=== PATIENT | male | born 1945 | race Caucasian/White ===

== ENCOUNTER 2017-07-29 10:11 | Inpatient (IN) | payer OTHER, MEDICARE ==
[2017-07-16 11:05] VITALS: Ht 167.6 cm; Wt 82.0 kg
--- NOTE | 2017-07-16 11:52 | PAT Medication Instructions ---
Service Date Jul 16, 2017. Current Home Medication List Acyclovir (Zovirax), 400 MG PO UD PRN for COLD SORES/GEN HERPES Adalimumab (Humira Pen), Unknown Dose Aspirin (Aspirin 81), 1 TAB PO HS Atorvastatin (Lipitor), 40 MG PO HS Cholecalciferol (Vitamin D3), Unknown Dose PO QAM Citalopram (Citalopram Hydrobromide), 1 TAB PO QAM Folic Acid (Folvite), 1 MG PO 6XWK Meloxicam (Meloxicam), 1 TAB PO QAM Methotrexate (Methotrexate), 2.5 TAB PO WK Omeprazole (Prilosec), 20 MG PO BID Prednisone (Prednisone), 5 MG PO QAM Ropinirole (Requip), 0.5 MG PO QAM Ropinirole (Requip), 1 MG PO HS [Testosterone ], 1 DOSE INJ EVERY OTHER WEEK Medication Instructions For Your Scheduled Surgery -Continue as directed: [Testosterone ], 1 DOSE INJ EVERY OTHER WEEK -Contact your surgeon for instructions for: Meloxicam (Meloxicam), 1 TAB PO QAM -Ask your environmental protection economist for instructions for: Methotrexate (Methotrexate), 2.5 TAB PO WK - Hold the following medications 2 weeks prior to surgery per your surgeon's instructions: Adalimumab (Humira Pen), Unknown Dose - Hold the following medications the night before surgery: Ropinirole (Requip), 1 MG PO HS - Hold the following medications the morning of surgery: Ropinirole (Requip), 0.5 MG PO QAM Cholecalciferol (Vitamin D3), Unknown Dose PO QAM Folic Acid (Folvite), 1 MG PO 6XWK - Take the following medications the morning of surgery with a sip of water: Citalopram (Citalopram Hydrobromide), 1 TAB PO QAM Prednisone (Prednisone), 5 MG PO QAM Omeprazole (Prilosec), 20 MG PO BID Acyclovir (Zovirax), 400 MG PO UD PRN for COLD SORES/GEN HERPES (if needed) - Take the following medications as scheduled the night before surgery: Aspirin (Aspirin 81), 1 TAB PO HS Atorvastatin (Lipitor), 40 MG PO HS Omeprazole (Prilosec), 20 MG PO BID Acyclovir (Zovirax), 400 MG PO UD PRN for COLD SORES/GEN HERPES (if needed) If you have any questions please call us at [phone] or [phone] or [phone]
--- NOTE | 2017-07-16 12:47 | DIAGNOSTIC IMAGING REPORT ---
CHEST 2 VIEWS ROUTINE CLINICAL HISTORY: Preoperative chest COMPARISON STUDY: No previous studies for comparison. FINDINGS: The heart is at the upper limits of normal in size. There is azygos fissure. There is no failure. There is no focal pulmonary consolidation. On the PA film, there is an 11 mm right infrahilar opacity. This likely represents a vascular summation as no corresponding mass is visualized in the lateral view. It would seem prudent to obtain a follow-up chest x-ray and 6 weeks.[ IMPRESSION: 1. 11 mm right infrahilar opacity, likely representing a summation. A 6 week follow-up chest x-rays recommended 2. No evidence of failure. No evidence of acute parenchymal consolidation. Electronically signed by: Phoenix Lira M.D. 07/16/2017 12:46 PM Dictated Date/Time: 07/16/2017 12:44 PM
--- NOTE | 2017-07-16 12:56 | DIAGNOSTIC IMAGING REPORT ---
LATERAL VIEW OF THE CERVICAL SPINE WITH FLEXION AND EXTENSION (3 VIEWS) CLINICAL HISTORY: Preop study. Rheumatoid arthritis. COMPARISON STUDY: No previous studies for comparison. FINDINGS: There are degenerative changes present at the C6-7 level. The prevertebral soft tissues are normal. No fractures are visualized. There is no instability on flexion or extension. IMPRESSION: 1. No instability on flexion or extension 2. Degenerative changes at the C6-7 level. Electronically signed by: Phoenix Lira M.D. 07/16/2017 12:55 PM Dictated Date/Time: 07/16/2017 12:54 PM
[2017-07-16 13:27] LABS: BASO % 0.1 %; BASO ABS # 0.01 K/uL (0-0.2); EOS % 1.3 %; HEMATOCRIT 43.2 % (42-52); HEMOGLOBIN 14.6 g/dL (14.0-18.0); IG# 0.01 K/uL (0.00-0.02); LYMPH % 19.7 %; LYMPH ABS # 1.53 K/uL (1.2-3.4); MEAN CORPUSCULAR HEMOGLOBIN 33.8 pg (25-34); MEAN CORPUSCULAR HGB CONC 33.8 g/dl (32-36); MEAN PLATELET VOLUME 9.8 fL (7.4-10.4); MONO % 9.3 %; MONO ABS # 0.72 K/uL (0.11-0.59); NEUT % 69.5 %; NEUT ABS # 5.41 K/uL (1.4-6.5); PLATELET COUNT 211 K/uL (130-400); RED CELL DISTRIBUTION WIDTH CV 12.8 % (11.5-14.5); RED CELL DISTRIBUTION WIDTH SD 46.4 fL (36.4-46.3); WHITE BLOOD COUNT 7.78 K/uL (4.8-10.8)
[2017-07-16 13:41] LABS: CALCIUM 8.8 mg/dl (8.5-10.1); CREATININE 1.05 mg/dl (0.60-1.40); POTASSIUM 4.5 mmol/L (3.5-5.1)
[2017-07-29] VITALS (8 sets, daily range): BP systolic 110–134; BP diastolic 70–89; PULSE 68–84; TEMP 36.6–36.9; O2SAT 91–97
[~2017-07-29] VITALS: Ht 167.6 cm; Wt 82.0 kg
[~2017-07-29 10:11] MED LIST: ACYC-57 PO; ADAL40KI; ASPI-435 PO; ATOR-24 PO; ATROPINE SULFATE 0.1 MG/ML 5ML SYR IV PRN; CEFAZOLIN 2000MG IV PUSH 10 ML IV SCH; CHOL1000 PO; CITA40TA4 PO; EpHEDrine SULFATE INJ 50 MG/ML AMP IV PRN; FENTANYL CITRATE INJ 50 MCG/1 ML 2 ML VIAL IV PRN; FOLI1TAB8 PO; HYDROmorphone INJ 1 MG/ML SYR IV PRN; LACTATED RINGER'S 1000ML 1,000 ML IV SCH; MELO15TA4 PO; METH2.5T PO; ONDANSETRON INJ 2 MG/ML 2 ML VIAL IV PRN; PRED-301 PO; PRLSR20 PO; ROPI0.5T15 PO; ROPI1TAB PO; TESTOSTERONE INJ
[2017-07-29] MEDS ORDERED: MIDAZOLAM HCL 1 MG/ML 2ML VIAL ONE (11:11)
[2017-07-29] MEDS ORDERED: FENTANYL CITRATE INJ 50 MCG/1 ML 2 ML VIAL ONE ×4 (11:11→13:52)
[2017-07-29] MEDS ORDERED: BACITRACIN 50000 UNIT VIAL ONE (11:13)
[2017-07-29] MEDS ORDERED: BUPIVACAINE/EPINEPHRINE 0.5% MPF 1:200,000 30 ML VIAL ONE (11:13)
--- NOTE | 2017-07-29 11:14 | History & Physical Bridge Note ---
H&P Re-Evaluation Bridge Note: I have examined the patient, reviewed the History & Physical and in the interval since the performance of the History & Physical I have noted the following changes of clinical significance: No changes noted
--- NOTE | 2017-07-29 11:15 | History and Physical ---
History & Physical Date Jul 29, 2017. Chief Complaint Back and leg pain History of Present Illness The patient is a 72 year old male with complaints of back and leg pain Additional History Hepatic Disease: No Endocrine Disorder: No Kidney Disease: No Hypertension: No Heart Disease: No Bleeding Tendencies: No Infectious Diseases: No Allergies Coded Allergies: No Known Allergies (Unverified , 07/29/17) Home Medications Scheduled Aspirin (Aspirin 81), 1 TAB PO HS Atorvastatin (Lipitor), 40 MG PO HS Cholecalciferol (Vitamin D3), Unknown Dose PO QAM Citalopram (Citalopram Hydrobromide), 1 TAB PO QAM Folic Acid (Folvite), 1 MG PO 6XWK Meloxicam (Meloxicam), 1 TAB PO QAM Methotrexate (Methotrexate), 2.5 TAB PO WK Omeprazole (Prilosec), 20 MG PO BID Prednisone (Prednisone), 5 MG PO QAM Ropinirole (Requip), 0.5 MG PO QAM Ropinirole (Requip), 1 MG PO HS [Testosterone ], 1 DOSE INJ EVERY OTHER WEEK Scheduled PRN Acyclovir (Zovirax), 400 MG PO UD PRN for COLD SORES/GEN HERPES Miscellaneous Medications Adalimumab (Humira Pen), Unknown Dose Physical Examination Skin: warm/dry, no rash Eyes: normal inspection, EOMI, sclerae normal ENT: normal ENT inspection, pharynx normal Head: normocephalic, atraumatic Neck: supple, no adenopathy, trachea midline Respiratory/Chest: lungs clear, normal breath sounds, no respiratory distress Cardiovascular: regular rate, rhythm, no edema, no murmur Abdomen / GI: normal bowel sounds, non tender Back: normal inspection Extremities: normal inspection, normal range of motion Neurologic/Psych: no motor/sensory deficits, alert, normal reflexes, oriented x 3 Diagnosis Lumbar spinal stenosis Plan of Treatment Impression and fusion L4 5
[2017-07-29] MEDS ORDERED: HYDROmorphone INJ 2 MG/ML SYR/VIAL ONE ×2 (12:18→13:28)
[2017-07-29] MEDS ORDERED: PROPOFOL IV EMULSION 10 MG/ML 20 ML VIAL IV ONE (12:38)
[2017-07-29] MEDS ORDERED: ONDANSETRON INJ 2 MG/ML 2 ML VIAL ONE ×2 (12:38→13:29)
[2017-07-29] MEDS ORDERED: DEXAMETHASONE SOD INJ 4 MG/ML VIAL ONE (12:38)
[2017-07-29] MEDS ORDERED: LIDOCAINE HCL 2% 2 ML VIAL (20MG/ML) ONE (12:38)
[2017-07-29] MEDS ORDERED: FLOSEAL HEMOSTATIC MATRIX 10ML TOP ONE (13:22)
[2017-07-29] MEDS ORDERED: KETOROLAC TROMETHAMINE 30 MG/ML VIAL ONE (13:29)
[2017-07-29] MEDS ORDERED: PHENYLEPHRINE 100MCG/ML 5ML SYR ONE (13:29)
[2017-07-29] MEDS ORDERED: NEOSTIGMINE METHYLSULFATE 1 MG/ML 10ML VIAL ONE (13:29)
[2017-07-29] MEDS ORDERED: PHENYLEPHRINE HCL INJ 10 MG/ML VIAL ONE (13:29)
[2017-07-29] MEDS ORDERED: GLYCOPYRROLATE INJ 0.2 MG/ML VIAL ONE (13:29)
[2017-07-29] MEDS ORDERED: SODIUM CHLORIDE 0.9% 1000ML 1,000 ML IV SCH (13:34)
--- NOTE | 2017-07-29 13:34 | [facility] Operative Report ---
Operative Report Operative Date Jul 29, 2017. Pre-Operative Diagnosis Lumbar spinal stenosis Post-Operative Diagnosis Lumbar spinal stenosis Procedure(s) Performed #1 along lumbar decompression L4 5 with medial facet medial foraminotomy. 2 posterior spinal fusion L4 5. 3 please posterior ends dictation L4-5. #4 interbody fusion L4 5. #5 placement peek Cage 14 x 22 mm at L4 5. #6 placement of locally harvested morcellized autograft in the posterior lateral gutters. #7 placement infuse sponge, mass graft in the posterior lateral gutters and osteotomy and bone graft in the interbody space. Surgeon Dr. Jason Harman Principal Consultant Surgeon(s) Maura Emmanuel PA-C Estimated Blood Loss 425ml Findings Spinal stenosis massive foraminal disc herniation L4 5 on the right Specimens none per surgeon Description of Procedure Patient was met with him preoperatively case discussed all questions addressed. After informed consent obtained patient was taken to the operative suite and underwent intubation and placed in the prone position on the Jere table on top of the Tevin frame. All bony prominences were well-padded the eyes were inspected to ensure no external pressure placed upon them. This point the lumbar spine was prepped and draped in the normal sterile fashion. Sharp dissection with child and youth program assistant Bovie cautery was performed onto exposing the lamina and transverse processes of L4 5. A complete laminectomy mucosectomy foraminotomy of L4 was then performed dressing severe facet hypertrophy and disc herniation involving the foramina on the right. After complete decompression pedicle screws were placed in L4 and L5 bilaterally with assistance of fluoroscopy and appropriate size sriram locked in position. The transforaminal approach on the right feet discectomy of L4 5 was performed and endplates curetted to subcortical bleeding bone and a 14 x 22 mm peek cage was tapped into position. The rods were then locked and final position. The transverse processes of L4 and L5 bur to subcortical bone. Infuse collagen sponge mass graft locally harvested morselized autograph was placed in the posterior lateral gutters. A 15 round GLENN drain inserted. Incision was then closed with 1 Vicryl in the fascia 2-0 Vicryl subcutaneously and 4-0 Monocryl for final skin closure Steri-Strips sterile dressings placed. Patient will continue packing the stable condition. Please note Maura Charles was present for the entire procedure involved in patient positioning complex portions of the surgery and final skin closure. I attest to the content of the Intraoperative Record and any orders documented therein. Any exceptions are noted below.
[2017-07-29] MEDS ORDERED: MEPERIDINE HCL 25 MG/ML CARP ONE (13:38)
--- NOTE | 2017-07-29 13:44 | DIAGNOSTIC IMAGING REPORT ---
INTRAOPERATIVE RADIOGRAPHS CLINICAL HISTORY: L4-L5 spinal fusion. Fluoroscopy time: 14 seconds. FINDINGS: 2 spot fluoroscopic views of the lumbar spine are presented. There has been discectomy at L4-L5 with laminectomy and posterior fusion at this level. Interpedicular screws are present at both levels. The orthopedic hardware appears intact. IMPRESSION: Intraoperative images from L4 -L5 spinal fusion as above. Electronically signed by: Monster Ocampo M.D. 07/29/2017 1:43 PM Dictated Date/Time: 07/29/2017 1:42 PM
[2017-07-29] MEDS ORDERED: LORAZEPAM INJ 0.5 MG in SYRINGE 0 ML IV PRN (13:45)
[2017-07-29] MEDS ORDERED: hydrOXYzine HCL 25 MG TAB PO PRN (13:45)
[2017-07-29] MEDS ORDERED: NALOXONE HCL 0.4 MG/1 ML VIAL/CARP IV PRN ×2 (13:45)
[2017-07-29] MEDS ORDERED: ALUMINUM/MAGNESIUM SUSP 30 ML UDC PO PRN (13:45)
[2017-07-29] MEDS ORDERED: ONDANSETRON INJ 2 MG/ML 2 ML VIAL IV PRN (13:45)
[2017-07-29] MEDS ORDERED: METOCLOPRAMIDE HCL INJ 5 MG/ML 2 ML VIAL IV PRN (13:45)
[2017-07-29] MEDS ORDERED: PROMETHAZINE HCL INJ 12.5 MG in SODIUM CHLORIDE 0.9% 50ML 50 ML IV PRN (13:45)
[2017-07-29] MEDS ORDERED: DO NOT ADMINISTER FLU VACCINE PRN (13:45)
[2017-07-29] MEDS ORDERED: CEFAZOLIN IV 2,000 MG in DEXTROSE 5% 50ML 50 ML IV SCH (13:45)
[2017-07-29] MEDS ORDERED: LORAZEPAM 0.5 MG TAB PO PRN (13:45)
[2017-07-29] MEDS ORDERED: ACETAMINOPHEN 500 MG TAB PO PRN (13:45)
[2017-07-29] MEDS ORDERED: MAGNESIUM HYDROXIDE SUSP 30 ML UDC PO PRN (13:45)
[2017-07-29] MEDS ORDERED: DO NOT ADMINISTER PNEUMOCOCCAL VACCINE PRN (13:45)
[2017-07-29] MEDS ORDERED: FAMOTIDINE 20 MG TAB PO PRN (13:45)
[2017-07-29] MEDS ORDERED: BISACODYL 10 MG SUPP PR PRN (13:45)
[2017-07-29] MEDS ORDERED: SOD PHOSPHATE/SOD BIPHOSPHATE ENEMA 132 ML BTL PR PRN (13:45)
[2017-07-29] MEDS ORDERED: ACETAMINOPHEN IV 100 ML IV PRN (13:45)
[2017-07-29] MEDS ORDERED: DC PCA PRN (13:45)
[2017-07-29] MEDS ORDERED: HYDROmorphone HCL 0.5MG/ML 50 ML CASSETTE ONE (13:49)
--- NOTE | 2017-07-29 14:09 | Anesthesiology Progress Note ---
Anesthesia Post Op Note Date & Time Jul 29, 2017 at 14:08 Vital Signs Pain Intensity: 4 Vital Signs Past 12 Hours Date Time Temp Pulse Resp B/P (MAP) Pulse Ox O2 Delivery O2 Flow Rate FiO2 07/29/17 13:45 36.4 90 14 131/83 98 Oxymask 10 07/29/17 10:39 36.6 68 18 134/89 96 Room Air Notes Mental Status: alert / awake / arousable, participated in evaluation Pt Amnestic to Procedure: Yes Nausea / Vomiting: adequately controlled Pain: adequately controlled Airway Patency, RR, SpO2: stable & adequate BP & HR: stable & adequate Hydration State: stable & adequate Anesthetic Complications: no major complications apparent
[2017-07-29] MEDS: HYDROmorphone HCL 0.5MG/ML 50 ML CASSETTE IV PRN ×2 (15:11→23:06)
[2017-07-29] MEDS: SODIUM CHLORIDE 0.9% 1000ML 1,000 ML IV SCH ×2 (16:58→23:29)
[2017-07-29] MEDS: CEFAZOLIN IV 2,000 MG in SYRINGE 5 ML IV SCH (20:25)
[2017-07-29] MEDS: ATORVASTATIN 40 MG TAB PO SCH (20:26)
[2017-07-29] MEDS: PANTOprazole SOD 40 MG TAB PO SCH (20:27)
[2017-07-29] MEDS: ROPINIROLE HCL 1 MG TAB PO SCH (20:27)
[2017-07-29] MEDS: ASPIRIN 81 MG ECTAB PO SCH (20:27)
[2017-07-29] MEDS: DOCUSATE SODIUM/SENNA 50/8.6MG TAB PO SCH (20:28)
[2017-07-29] MEDS ORDERED: NURSING DECISION MEDICATION ORDER SCH (20:30)
[2017-07-29] MEDS ORDERED: RXC5 PO (21:37)
--- NOTE | 2017-07-29 21:38 | Discharge Instructions ---
Discharge Instructions Date of Service Jul 29, 2017. Admission Reason for Admission: Spinal Stenosis Discharge Discharge Diagnosis / Problem: stenosis Discharge Goals Goal(s): Improve function Activity Recommendations Activity Limitations: per Instructions/Follow-up section . Instructions / Follow-Up Instructions / Follow-Up ACTIVITY RECOMMENDATIONS: SELF CARE INSTRUCTIONS AFTER THORACIC/LUMBAR FUSIONS 1. You may walk to your tolerance. It is good exercise for your legs and back. Expect some back and intermittent leg aches and pains. 2. You may perform "counter-top" level activities (make a sandwich, cullen with a project, etc.). 3. No bending or lifting of more than 10 pounds or back twisting of any nature (roll like a log when turning in bed). 4. You may ride in a car for 20-30 minutes at a time. No driving until after your first visit with your doctor. 5. Frequent changes of position and restricting sitting to 30 minutes at a time will help limit the amount of back spasms and stiffness you may experience. 6. You may discontinue the use of ambulatory aids (cane, crutches, etc.) once your strength and confidence allow. 7. You may driver's education instructor the shower and let water strike your incision when you arrive home at least once daily. Do not take a tub bath, sit in a hot tub or go into a swimming pool until after your first recheck in the office. SPECIAL CARE INSTRUCTIONS: VERY IMPORTANT TO READ AND REVIEW A. Your surgical incision has been closed with a cosmetic suture under the skin that will dissolve in about 6 weeks. In 14 days, you can use a pair of clean scissors and cut the suture that is left outside of the skin at the ends of your incision. 1. The small skin tapes can be removed 7 days after surgery if they have not fallen off by that point. 2. You may keep the wound open to air as much as possible to promote healing after post-op day number 5 unless told otherwise by your doctor. 3. If you think the wound looks like it is becoming infected (redness or worsening drainage) and/or you are experiencing fever, chill or worsening back pain and muscle spasms, contact the office so that we may evaluate you as soon as possible. B. Complications are uncommon, but please contact us if you have any signs or symptoms of: 1. wound infection (fever higher than 102.5 degrees F, redness, separation of wound, drainage, or increasing pain from the incision) 2. blood clots in legs (pain, swelling, redness and warmth in legs) 3. urinary tract infection (fever higher than 102.5 degrees F, burning upon urination or increased frequency of urination) 4. nerve problems (inability to walk on your toes or heels, numbness, loss of bowel or bladder control) 5. any other symptoms that concern you C. Please call the office at if you have any concerns or questions about your operation or recovery. D. No smoking! Smoking drastically decreases the chance of a solid fusion. E. Do not take any anti-inflammatory medications (Indocin, Advil, Motrin, Aspirin, Naprosyn, etc.) as these may inhibit the chance of a solid fusion. Tylenol is okay to take for pain. MANAGING PAIN AFTER SPINAL SURGERY 1. Narcotic medication is intended for short-term use and will be provided for surgical pain. Surgical pain usually lasts for a period of 4-6 weeks. Narcotic medication includes Percocet, Vicodin, Darvocet, Tylenol #3 or Lortab. 2. Longer-term pain is more appropriately treated with non-narcotic medication such as Tylenol ES. 3. Muscle spasm is not appropriately treated with narcotics. Muscle relaxers such as Soma, Flexeril or Skelaxin can be used along with Tylenol ES. 4. Remember that we all live with some "aches and pains". This is not unusual or uncommon after an injury or as we get older. a. Back pain is expected and may include muscle spasms for 4 to 6 weeks after surgery. The pain should gradually improve. If the pain worsens for no apparent reason, please contact the office. b. Intermittent leg pain may also be experienced and should not be concerned about unless it worsens for no apparent reason. If so, please contact the office. 5. We will provide appropriate medication within the normal guidelines of their prescribed use. We will also be very cautious and aware of potential abuse and extended duration of patients' medication needs. a. Pain medications are for your comfort and to assist with sleep and rest so that the tissue can heal. They are not provided in order to return to normal activity and should not be used through the day. To do so or worsening pain at night can result from ongoing tissue damage and development of tolerance to the prescribed medicine. 6. Please allow 2-3 days to process refills. Prescriptions will not be mailed but must be picked up at the office. FOLLOW UP VISIT: Keep your scheduled follow-up appointment. Any questions, please call the office at . Current Hospital Diet Patient's current hospital diet: Regular Diet Discharge Diet Recommended Diet: Regular Diet Procedures Procedures Performed: #1 along lumbar decompression L4 5 with medial facet medial foraminotomy. 2 posterior spinal fusion L4 5. 3 please posterior ends dictation L4-5. #4 interbody fusion L4 5. #5 placement peek Cage 14 x 22 mm at L4 5. #6 placement of locally harvested morcellized autograft in the posterior lateral gutters. #7 placement infuse sponge, mass graft in the posterior lateral gutters and osteotomy and bone graft in the interbody space. Pending Studies Studies pending at discharge: no Medical Emergencies . Who to Call and When: Medical Emergencies: If at any time you feel your situation is an emergency, please call 911 immediately. . Non-Emergent Contact Non-Emergency issues call your: Primary Care Provider . "Provider Documentation" section prepared by Jason Harman. . VTE Core Measure Inpt VTE Proph given/why not?: Pam Fernandez, SCD's
[2017-07-30] MEDS: CEFAZOLIN IV 2,000 MG in SYRINGE 5 ML IV SCH (03:52)
[2017-07-30 04:05] VITALS: BP 128/78; PULSE 73; TEMP 36.6; O2SAT 95
[2017-07-30] MEDS ORDERED: HYDROmorphone INJ 1 MG/ML SYR IV PRN (06:00)
[2017-07-30] MEDS ORDERED: HYDROmorphone INJ 0.5 MG/0.5 ML SYR IV PRN (06:00)
[2017-07-30 06:34] LABS: HEMATOCRIT 34.9 % (42-52); HEMOGLOBIN 11.8 g/dL (14.0-18.0); IG# 0.03 K/uL (0.00-0.02); LYMPH % 11.9 %; LYMPH ABS # 1.48 K/uL (1.2-3.4); MEAN CELL VOLUME 100.3 fL (80-100); MEAN CORPUSCULAR HEMOGLOBIN 33.9 pg (25-34); MEAN CORPUSCULAR HGB CONC 33.8 g/dl (32-36); MEAN PLATELET VOLUME 9.4 fL (7.4-10.4); MONO % 9.3 %; MONO ABS # 1.16 K/uL (0.11-0.59); NEUT % 78.6 %; NEUT ABS # 9.75 K/uL (1.4-6.5); PLATELET COUNT 155 K/uL (130-400); RED CELL DISTRIBUTION WIDTH CV 12.8 % (11.5-14.5); RED CELL DISTRIBUTION WIDTH SD 46.6 fL (36.4-46.3); WHITE BLOOD COUNT 12.42 K/uL (4.8-10.8)
[2017-07-30] MEDS ORDERED: NURSING DECISION MEDICATION ORDER SCH (06:45)
[2017-07-30 07:05] LABS: CALCIUM 8.4 mg/dl (8.5-10.1); CREATININE 0.95 mg/dl (0.60-1.40); POTASSIUM 4.6 mmol/L (3.5-5.1)
[2017-07-30 07:51] VITALS: BP 126/85; PULSE 67; TEMP 36.6; O2SAT 96
[2017-07-30] MEDS: PANTOprazole SOD 40 MG TAB PO SCH ×2 (08:59→20:37)
[2017-07-30] MEDS: OXYCODONE HCL IR 5 MG TAB (IMMEDIATE RELEASE) PO PRN ×3 (08:59→19:19)
[2017-07-30] MEDS: CITALOPRAM 40 MG TAB PO SCH (09:00)
[2017-07-30] MEDS: ROPINIROLE HCL 0.25 MG TAB PO SCH (09:01)
[2017-07-30 10:55] VITALS: BP 115/69; PULSE 68; O2SAT 98
[2017-07-30 11:14] VITALS: BP 118/75; PULSE 73; TEMP 36.4; O2SAT 98
[2017-07-30] MEDS ORDERED: KETOROLAC TROMETHAMINE 15 MG/ML VIAL IV. PRN (12:45)
[2017-07-30 15:09] VITALS: BP 117/69; PULSE 75; TEMP 36.4; O2SAT 97
--- NOTE | 2017-07-30 16:55 | Progress Note ---
Progress Note Date of Service Jul 30, 2017. Progress Note Back pain is well-controlled. Leg symptoms are markedly improved. Vital signs are stable. On exam he is in chair at bedside. He demonstrates excellent strength to testing. He is quite comfortable. Assessment status post lumbar decompression and fusion. Plan at this time will continue physical therapy assess his progress discharge home tomorrow or the next day.
[2017-07-30] MEDS: DOCUSATE SODIUM/SENNA 50/8.6MG TAB PO SCH (20:37)
[2017-07-30] MEDS: ASPIRIN 81 MG ECTAB PO SCH (20:38)
[2017-07-30] MEDS: ROPINIROLE HCL 1 MG TAB PO SCH (20:38)
[2017-07-30] MEDS: ATORVASTATIN 40 MG TAB PO SCH (20:38)
[2017-07-30 23:25] VITALS: BP 106/63; PULSE 74; TEMP 36.4; O2SAT 97
[2017-07-31] MEDS: POLYETHYLENE (MIRALAX) 17 GM PACK PO SCH ×2 (05:54→11:31)
[2017-07-31 06:12] VITALS: BP 132/81; PULSE 73; TEMP 36.7; O2SAT 94
[2017-07-31] MEDS: PANTOprazole SOD 40 MG TAB PO SCH (07:15)
[2017-07-31] MEDS: ROPINIROLE HCL 0.25 MG TAB PO SCH (07:16)
[2017-07-31] MEDS: CITALOPRAM 40 MG TAB PO SCH (07:16)
[2017-07-31 08:35] VITALS: O2SAT 94
--- NOTE | 2017-07-31 08:35 | Discharge Summary ---
Orthopedic Discharge Summary Admission Date/Reason Jul 29, 2017 at 11:00 Spinal Stenosis. Discharge Date/Disposition Jul 31, 2017 Home Diagnosis Principal Diagnosis: Lumbar spinal stenosis Admission Physical Exam As per Admitting History & Physical. Hospital Course Patient underwent lumbar decompression fusion tolerated this well and taken to the orthopedic floor postoperative. Postoperative day #1 is up amatory progressed nicely throughout the day. Leg pain marked improvement. Subsequent to discharge home. Discharge orders and instructions chart for further review. Discharge Instructions Please refer to the electronic Patient Visit Report (Discharge Instructions) for additional information.
[2017-07-31 12:40] VITALS: BP 132/81; PULSE 73; TEMP 36.7; O2SAT 94
== END 2017-07-31 13:20 | disposition home or self-care (01) | DRG 455 ==
LOC: C.ACU 10:11 → C.3E 11:00 → ENRESERV 14:01
PROVIDERS: ADMIT Orthopaedic Surgery Orthopaedic Surgery of the Spine; ATTEND Orthopaedic Surgery Orthopaedic Surgery of the Spine
PROC: 0ST20ZZ Resection of Lumbar Vertebral Disc, Open Approach (ICD-10-PCS; principal; 2017-07-29 12:15)
PROC: 0SG0071 Fusion of Lumbar Vertebral Joint with Autologous Tissue Substitute, Posterior Approach, Posterior Column, Open Approach (ICD-10-PCS; principal; 2017-07-29 12:15)
PROC: 0SG00AJ Fusion of Lumbar Vertebral Joint with Interbody Fusion Device, Posterior Approach, Anterior Column, Open Approach (ICD-10-PCS; principal; 2017-07-29 12:15)
DX: M48.061 Spinal stenosis, lumbar region without neurogenic claudication (principal); I25.10 Atherosclerotic heart disease of native coronary artery without angina pectoris; I35.0 Nonrheumatic aortic (valve) stenosis; E78.5 Hyperlipidemia, unspecified; G47.33 Obstructive sleep apnea (adult) (pediatric); G25.81 Restless legs syndrome; G57.91 Unspecified mononeuropathy of right lower limb; K21.9 Gastro-esophageal reflux disease without esophagitis; M06.9 Rheumatoid arthritis, unspecified; F32.9 Major depressive disorder, single episode, unspecified; Z87.19 Personal history of other diseases of the digestive system; Z79.1 Long term (current) use of non-steroidal anti-inflammatories (NSAID); Z79.52 Long term (current) use of systemic steroids; Z79.82 Long term (current) use of aspirin; Z79.899 Other long term (current) drug therapy